=== PATIENT | male | born 1960 | race Caucasian/White ===

== ENCOUNTER 2017-03-11 15:38 | Day surgery (SDC) | payer BC ==
[2017-03-11] MEDS ORDERED: Levofloxacin 750 MG IVPREMIX(* 750 MG/150 ML BAG ONE (16:25)
[2017-03-11] MEDS ORDERED: Buffered Lidocaine 0.9% SYRIN* 5 ML/SYR SYRINGE INTRADERM ONE (16:28)
[2017-03-11] MEDS ORDERED: Ondansetron INJ* 2 MG/ML VIAL IV ONE (16:28)
[2017-03-11] MEDS ORDERED: Famotidine IV* 10 MG/ML 2 ML (20 mg) IV ONE (16:28)
[2017-03-11] MEDS ORDERED: Dexamethasone IV* 4 MG/ML 1 ML (4 MG) IV SLOW PU ONE (16:28)
[2017-03-11] MEDS ORDERED: Dexamethasone IV* 4 MG/ML 1 ML (4 MG) ONE (16:38)
[2017-03-11] MEDS ORDERED: Iohexol 180 (CONTRAST) 10 ML SDV IV ONE ×2 (16:38→18:08)
[2017-03-11] MEDS ORDERED: Ondansetron INJ* 2 MG/ML VIAL ONE (16:38)
[2017-03-11] MEDS ORDERED: Famotidine IV* 10 MG/ML 2 ML (20 mg) ONE (16:38)
[2017-03-11] MEDS ORDERED: Midazolam* 1 MG/ML 10 ML VIAL (10 MG) ONE (16:45)
[2017-03-11] MEDS ORDERED: Propofol* 10 MG/ML 20 ML BTL IV PUSH ONE (16:45)
[2017-03-11] MEDS ORDERED: fentaNYL* 50 MCG/ML 2 ML VIAL (100 MCG VIAL) ONE (16:45)
[2017-03-11] MEDS ORDERED: Chloroprocaine 2%* 20 ML VIAL ONE (16:48)
[2017-03-11] MEDS ORDERED: DiMENhydriNATE IV* 50 MG/ML VIAL IV PUSH PRN (17:40)
[2017-03-11] MEDS ORDERED: Scopolamine 1.5 mg* PATCH TRANSDERM PRN (17:40)
[2017-03-11] MEDS ORDERED: fentaNYL* 50 MCG/ML 2 ML VIAL (100 MCG VIAL) IV PRN (17:40)
[2017-03-11] MEDS ORDERED: HYDROmorphone INJ* 1 MG/ML CARPUJECT SYRINGE IV PRN (17:40)
[2017-03-11] MEDS ORDERED: oxyCODONE/Acetamin 5/325 MG* TAB PO PRN (17:40)
[2017-03-11] MEDS ORDERED: Ondansetron INJ* 2 MG/ML VIAL IV PRN (17:40)
--- NOTE | 2017-03-11 18:11 | RAD ---
INDICATION: Cystoscopy, stent insertion COMPARISONS: KUB dated March 11, 2017 TECHNIQUE: Fluoroscopy was provided for a retrograde pyelogram and stent placement. Total fluoroscopy time is: 13 seconds FINDINGS: Spot images demonstrate contrast within a stent within the renal collecting system IMPRESSION: FLUOROSCOPY WAS PROVIDED FOR A RETROGRADE PYELOGRAM AND STENT PLACEMENT CPT II Codes: 6045F
[2017-03-11 18:52] VITALS: BP 148/79
[2017-03-11] MEDS ORDERED: Acetaminophen TAB* 325 MG ONE (19:38)
--- NOTE | 2017-03-11 20:04 | RAD ---
HISTORY: Postop KUB COMPARISONS: March 11, 2017 at 1:22 PM VIEWS: Frontal views of the abdomen. FINDINGS: BOWEL: There is a nonspecific bowel gas pattern, with nondilated small bowel gas noted. CALCULI: Again noted is a right ureteral calculus. A right ureteral stent is noted. BONES AND SOFT TISSUES: There are no osseous abnormalities. OTHER FINDINGS: The lung bases are clear. There is no subphrenic gas. IMPRESSION: RIGHT NEPHROLITHIASIS WITH A RIGHT URETERAL STENT
--- NOTE | 2017-03-12 11:40 | OP ---
CC: Dr. Ambrosio Zelaya * DATE OF OPERATION: 03/11/17 - [facility] DATE OF : 64 SURGEON: Richard Bethea MD. ANESTHESIOLOGIST: Dr. Judah James. ANESTHESIA: Spinal. PRE-OP DIAGNOSES: 1. Right renal colic. 2. Calculus at the right ureteropelvic junction. POST-OP DIAGNOSES: 1. Right renal colic. 2. Calculus at the right ureteropelvic junction. OPERATIVE PROCEDURE: 1. Cystoscopy. 2. Right retrograde pyelography. 3. Placement of right ureteral stent (6-Mauritian) INDICATIONS FOR PROCEDURE: Mr. Hu is a 56-year-old white male who about a week ago started having recurrent episodes of right flank pain. The pain became very severe 3 days ago and he presented to the emergency room at [facility] where he had a renal ultrasound which showed a 1.5 cm calculus at the right ureteropelvic junction. The patient was managed conservatively with pain medication and tamsulosin. He presented today to Dr. Zelaya's office with recurrence of his colic. His serum creatinine was up to 1.9. He has remained afebrile. KUB showed a 1 cm radiopaque calculus at the area of right ureteropelvic junction. Because of the above history and findings and the recurrent episodes of pain and the size of the stone, the patient is taken to the operating room on an urgent basis for placement of a right ureteral stent. The patient has noted gross hematuria today. PATHOLOGY: At cystoscopy, the penile and bulbar urethrae looked normal. The prostatic urethra measured about 2.5 cm in length and there was some elevation of the bladder neck. Examination of the bladder showed normal mucosa. There were no suspicious bladder lesions seen. The ureteral orifices looked normal. At fluoroscopy a 1 cm radiopaque calculus was noted in the area of the right ureteropelvic junction. Right retrograde pyelography confirmed the above finding and showed moderate right hydronephrosis. DESCRIPTION OF PROCEDURE: After successful spinal anesthesia the patient was placed in the lithotomy position and was prepped and draped for a cystoscopy. Cystoscopy was performed. The bladder was carefully inspected and the above findings were noted. A flexible tip guidewire was then introduced into the right orifice and positioned in the area of the renal pelvis bypassing the stone. A size 5- Mauritian open-ended catheter was fed on top of the guidewire and positioned in the area of the renal pelvis. Bloody efflux was noted from the right renal pelvis. Retrograde pyelography was then performed demonstrating the above pathology. The guidewire was reintroduced. A size 6-Mauritian stent was then placed with the proximal end coiling in renal pelvis and the distal end coiling inside the bladder. There was good drainage of contrast from the kidney and no extravasation. The patient tolerated the procedure well and left the operating room in good condition. The plan is to obtain a KUB in the PACU. The plan will be to schedule him for shockwave lithotripsy of the right renal calculus followed by stent removal. [id number]/[facility] #: [id number] WILFRED
[2017-03-14] MEDS ORDERED: Scopolamine PATCH Remove* 1 NOTE MISC PATCH OFF ONE (17:41)
== END 2017-03-11 19:56 | disposition home or self-care (01) ==
LOC: OR 15:38
PROVIDERS: ATTEND Urology
DX: N20.0 Calculus of kidney (principal); R31.0 Gross hematuria; M19.90 Unspecified osteoarthritis, unspecified site; E66.9 Obesity, unspecified; R10.31 Right lower quadrant pain
CPT/HCPCS: 36415; 74000; 74420; 85610; 85730; A9270-GY; C1876; J1100; J2250; J2400; J2405; J2704; J3010

== ENCOUNTER → 2017-03-18 06:58 | Day surgery (SDC) | payer BC ==
--- NOTE | 2017-03-13 08:38 | HP ---
CC: Dr. Zelaya * HISTORY AND PHYSICAL: DATE OF PLANNED ADMISSION AND SURGERY: 03/18/17 HISTORY OF PRESENT ILLNESS: Mr. Hu is a 56-year-old white male who is admitted with a right renal calculus, status post placement of right ureteral stent for shockwave lithotripsy of right renal calculus followed by possible removal of the right ureteral stent. Mr. Hu was referred by Dr. Zelaya because of one week history of right renal colic. Workup showed 1-cm calculus at the right ureteropelvic junction associated with moderate hydronephrosis. Patient was taken to the operating room urgently on 03/11/17 and had a placement of right ureteral stent with resolution of his acute pain. Postoperative KUB showed the stone to be at the level of the ureteropelvic junction. Patient is now admitted for the above procedure for definitive treatment of the stone. PAST MEDICAL HISTORY AND SYSTEM REVIEW: He is in good health. He has glaucoma , on eye drops. He is on no other chronic medications. ALLERGIES: Patient reports being severely allergic with anaphylaxis to PENICILLIN and to CEPHALOSPORINS. He denies any cardiac or pulmonary diseases or symptoms. PHYSICAL EXAMINATION GENERAL: Moderately overweight, otherwise healthy looking white male who looks his age. VITAL SIGNS: Blood pressure 130/80, pulse of 60. LUNGS: Clear. HEART: Regular and rhythmic, no murmurs. ABDOMEN: Soft. No masses, no tenderness and slight right CVA tenderness. IMPRESSION: A 1-cm calculus at the right ureteropelvic junction, status post placement of right ureteral stent. PLAN: For shockwave lithotripsy of the right renal calculus with possible cystoscopy and removal of the right ureteral stent. I discussed the above in detail with the patient. All his questions were answered. [id number]/[facility] #: [id number] WILFRED
[~2017-03-18 06:58] MED LIST: Buffered Lidocaine 0.9% SYRIN* 5 ML/SYR SYRINGE INTRADERM ONE; Buffered Lidocaine 0.9% SYRIN* 5 ML/SYR SYRINGE ONE; Chloroprocaine 2%* 20 ML VIAL ONE; DiMENhydriNATE IV* 50 MG/ML VIAL IV PUSH PRN; Famotidine IV* 10 MG/ML 2 ML (20 mg) IV ONE; Famotidine IV* 10 MG/ML 2 ML (20 mg) ONE; KETAMINE HCL* 50 MG/ML 10 ML VIAL ONE; Levofloxacin 750 MG IVPREMIX(* 750 MG/150 ML BAG ONE; Midazolam* 1 MG/ML 10 ML VIAL (10 MG) ONE; Morphine INJ* 2 MG/ML 1 ML CARPUJECT IV PRN; PROCHLORPERAZINE INJ 5 MG/ML 2 ML VIAL IV PRN; Scopolamine 1.5 mg* PATCH TRANSDERM PRN; Scopolamine PATCH Remove* 1 NOTE MISC PATCH OFF ONE; fentaNYL* 50 MCG/ML 2 ML VIAL (100 MCG VIAL) IV PRN; fentaNYL* 50 MCG/ML 2 ML VIAL (100 MCG VIAL) ONE; oxyCODONE/Acetamin 5/325 MG* TAB PO PRN
[2017-03-18 11:20] VITALS: BP 122/62
--- NOTE | 2017-03-19 02:45 | OP ---
CC: Dr. Zelaya * DATE OF OPERATION: 03/18/17 - [facility] DATE OF : 64 SURGEON: Richard Bethea MD ANESTHESIOLOGIST: Dr. Farooq Lucero. ANESTHESIA: Spinal. PRE-OP DIAGNOSES: 1. Right renal calculus. 2. Status post placement right ureteral stent. POST-OP DIAGNOSES: 1. Right renal calculus. 2. Status post placement right ureteral stent. OPERATIVE PROCEDURE: Shockwave lithotripsy of right renal calculus. INDICATION FOR PROCEDURE: Mr. Hu is a 56-year-old white male who underwent urgent placement of right ureteral stent 1 week ago because of a 1.2 -cm calculus located at the right ureteropelvic junction. He did well postoperatively with resolution of his pain. He is now been brought in for definitive treatment of the stone. Pathology: at fluoroscopy, the calculus seemed to have migrated just distal to the level of the right ureteropelvic junction. The right ureteral stent was in good position. No other abnormal calcifications were noted. DESCRIPTION OF PROCEDURE: After successful spinal anesthesia, the patient was placed in the supine position on the shockwave lithotripsy table. The right renal calculus was visualized in both the PA and the oblique x-ray views and the position of the generator and of the patient were adjusted to have the stone in the focus of the shockwaves. A total of 2,400 shocks were then delivered at a rate of 90 shocks per minute. The proper positioning and fragmentation of the stone were monitored periodically. A 3 minutes break was taken after the initial 300 shocks to reduce the risk of renal injury. Although the fragmentation of the stone seemed to be adequate, it was decided not to remove the stent because of the concern about associated edema of the ureteral mucosa surrounding the stone. The patient tolerated the procedure well and left the operating room in good condition. The plan is to see the patient next week in the office with a KUB. The stent will be removed in the office under local anesthesia. [id number]/[facility] #: [id number] [facility] HEALTHAvinash
== END | disposition home or self-care (01) ==
LOC: OR 06:58
PROVIDERS: ATTEND Urology
DX: N20.0 Calculus of kidney (principal); Z96.0 Presence of urogenital implants; H40.9 Unspecified glaucoma; Z88.0 Allergy status to penicillin; Z88.1 Allergy status to other antibiotic agents
CPT/HCPCS: J2250; J2400; J3010

== ENCOUNTER → 2017-03-29 08:10 | Day surgery (SDC) | payer BC ==
--- NOTE | 2017-03-28 21:19 | HP ---
INTERVAL HISTORY NOTE: DATE OF PLANNED ADMISSION AND SURGERY: 03/29/17 HISTORY OF PRESENT ILLNESS: Mr. Hu is a 56-year-old white male who is admitted with a proximal right ureteral calculus, status post placement right ureteral stent for cystoscopy, right ureteroscopy, laser lithotripsy, and right ureteral stent exchange. Please refer to my history and physical for his admission dated 03/18/17. In brief, Mr. Hu presented with right renal colic secondary to 1.2 cm proximal right ureteral calculus. He had urgent placement of right ureteral stent on 03/11/17. He was brought back on 03/18/17 and underwent shockwave lithotripsy of the right renal calculus. The calculus did not seem to have fragmented at the end of the procedure, the stent was not removed. He was evaluated in the office with a followup KUB and the calculus seemed to be not fragmented and still located in the proximal left ureter just distal to the ureteropelvic junction. I gave the patient the options of removing the stent and allowing the stone to drop into the ureter and if it gets obstructed, he can undergo a ureteroscopy and laser lithotripsy. 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 The plan therefore is for a right ureteroscopy, laser lithotripsy, and right ureteral stent exchange. I discussed the above plan with the patient. Some of the potential complications including migration of the stone, inability to extract all the stone fragments were discussed. [id number]/[facility] #: [id number] WILFRED
[~2017-03-29 08:10] MED LIST changes: +Dexamethasone IV* 4 MG/ML 1 ML (4 MG) ONE; +EPHEDrine (Pressors)* 50 MG/ML VIAL ONE; +Iohexol 180 (CONTRAST) 10 ML SDV IV ONE; +Lidocaine 2% PF * 5 ML VIAL ONE; +Ondansetron INJ* 2 MG/ML VIAL ONE; +Phenylephrine INJ* 10 MG/ML 1 ML VIAL (10 MG) ONE; +Propofol* 10 MG/ML 20 ML BTL IV PUSH ONE; +Scopolamine 1.5 mg* PATCH ONE
--- NOTE | 2017-03-29 11:50 | RAD ---
INDICATION: Right ureteral stent exchange COMPARISON: None FINDINGS: 15 seconds of fluoroscopy were provided for the urology department. Fluoroscopic spot imaging of the right abdomen were obtained for operative control. CPT II Codes: 6045F (fluoro time doc)
[2017-03-29 13:20] VITALS: BP 122/85
--- NOTE | 2017-03-30 00:24 | OP ---
CC: Dr. Zelaya OPERATIVE REPORT: DATE OF OPERATION: 03/29/17 DATE OF : 64 SURGEON: Richard Bethea MD ANESTHESIOLOGIST: Farooq Lucero MD ANESTHESIA: Spinal. PRE-OP DIAGNOSES: 1. Proximal right ureteral calculus. 2. Status post placement of right ureteral stent. 3. Status post shock wave lithotripsy of proximal right ureteral calculus. POST-OP DIAGNOSES: 1. Proximal right ureteral calculus. 2. Status post placement of right ureteral stent. 3. Status post shock wave lithotripsy of proximal right ureteral calculus. OPERATIVE PROCEDURE: 1. Cystoscopy. 2. Right ureteroscopy and pyeloscopy and laser lithotripsy of right proximal ureteral calculus (1.2 cm). 3. Right retrograde pyelography and right ureteral stent exchange (7-Canadian). INDICATIONS: Mr. Hu is a 56-year-old white male who had urgent placement of a right ureteral stent on 03/11/17 because of an obstructing 1.2-cm calculus at the right ureteropelvic junction. He then underwent shock wave lithotripsy of the right renal calculus on 03/18/17. Postoperative KUB showed the stone not to be fragmented and still at the level of the ureteropelvic junction. Because of that finding, the patient is brought in for definitive treatment of the stone. PATHOLOGY AT CYSTOSCOPY: The penile and bulbar urethrae looked normal. The prostatic urethra measured about 2.5 cm in length, but there was elevation of the bladder neck with some bladder outlet obstruction. Examination of the bladder showed the distal limb of the stent coming from the right ureteral orifice. At fluoroscopy, the stent was in good position and there was a 1.2-cm radiopaque calculus at the ureteropelvic junction. Upon right ureteroscopy, the calculus was noted at the level of the ureteropelvic junction. The stone was impacted. There was edema to the adjacent ureteral mucosa. The stone had the gross appearance of calcium oxalate stone. DESCRIPTION OF PROCEDURE: After successful spinal anesthesia, the patient was placed in the lithotomy position and was prepped and draped for cystoscopy. Cystoscopy was performed, the bladder was inspected and the above findings were noted. The distal limb of the stent was pulled out to the level of the urethral meatus. A flexible-tip guidewire was then introduced into the lumen of the stent and positioned in the area of the renal pelvis and the stent was removed keeping the guidewire in place. A size 6.5 semi-rigid ureteroscope was then introduced inside the bladder. A flexible-tip spiral basket was introduced through the port of the ureteroscope and its flexible tip was passed inside the right ureter adjacent to the guidewire. This allowed the atraumatic introduction of the ureteroscope all the way up into the proximal ureter. The ureter was dilated because of the stent and the scope went easily without any difficulty. The calculus was identified at the level of the ureteropelvic junction. There was edema of the adjacent mucosa. The basket was then pushed beyond the stone and the basket was deployed to avoid proximal migration of the stone into the renal pelvis. A size 550 micron laser fiber was then introduced through the other port of the ureteroscope and the stone was broken into multiple fragments making sure not to to cause any injury to the ureteral wall. The stone was broken into 4 fragments. The fragments were then extracted one by one with the basket. The ureteroscope was then reintroduced all the way into the renal pelvis and no stone fragments were noted. The ureter was intact without any evidence of any injury or perforation. The Ureteroscope was removed keeping the guidewire in place. Retrograde pyelography was then performed, no extravasation was noted. A size 7-Canadian stent was then placed with the proximal end coiling in the renal pelvis and distal end coiling inside the bladder. There was good drainage of contrast from the kidney and no extravasation. A 16-Canadian Guajardo catheter was then passed inside the bladder. The patient tolerated the procedure well and left the operating room in good condition. The plan is to remove the stent in the office next week. [id number]/[facility] #: [id number] [facility] HOSPITALAvinash
== END | disposition home or self-care (01) ==
LOC: OR 08:10
PROVIDERS: ATTEND Urology
DX: N20.0 Calculus of kidney (principal); N32.0 Bladder-neck obstruction
CPT/HCPCS: 62323; 74420; 82365; 88300; A9270-GY; C1876; J1100; J2250; J2400; J2405; J2704; J3010

== ENCOUNTER 2023-01-01 11:29 | Inpatient (IN) ==
[~2023-01-01 11:29] MED LIST changes: -Buffered Lidocaine 0.9% SYRIN* 5 ML/SYR SYRINGE INTRADERM ONE; -Buffered Lidocaine 0.9% SYRIN* 5 ML/SYR SYRINGE ONE; +Buffered Lidocaine 1% SYRIN 1 ml INTRADERM ONE; -Chloroprocaine 2%* 20 ML VIAL ONE; -Dexamethasone IV* 4 MG/ML 1 ML (4 MG) ONE; -DiMENhydriNATE IV* 50 MG/ML VIAL IV PUSH PRN; -EPHEDrine (Pressors)* 50 MG/ML VIAL ONE; +Famotidine IV 10 MG/ML 2 ml VIAL (20 mg) IV ONE; -Famotidine IV* 10 MG/ML 2 ML (20 mg) IV ONE; -Famotidine IV* 10 MG/ML 2 ML (20 mg) ONE; -Iohexol 180 (CONTRAST) 10 ML SDV IV ONE; -KETAMINE HCL* 50 MG/ML 10 ML VIAL ONE; +Lactated Ringers 1000 ml BAG 1,000 ML IV SCH; -Levofloxacin 750 MG IVPREMIX(* 750 MG/150 ML BAG ONE; -Lidocaine 2% PF * 5 ML VIAL ONE; -Midazolam* 1 MG/ML 10 ML VIAL (10 MG) ONE; -Morphine INJ* 2 MG/ML 1 ML CARPUJECT IV PRN; -Ondansetron INJ* 2 MG/ML VIAL ONE; -PROCHLORPERAZINE INJ 5 MG/ML 2 ML VIAL IV PRN; -Phenylephrine INJ* 10 MG/ML 1 ML VIAL (10 MG) ONE; -Propofol* 10 MG/ML 20 ML BTL IV PUSH ONE; -Scopolamine 1.5 mg* PATCH ONE; -Scopolamine 1.5 mg* PATCH TRANSDERM PRN; -Scopolamine PATCH Remove* 1 NOTE MISC PATCH OFF ONE; -fentaNYL* 50 MCG/ML 2 ML VIAL (100 MCG VIAL) IV PRN; -fentaNYL* 50 MCG/ML 2 ML VIAL (100 MCG VIAL) ONE; -oxyCODONE/Acetamin 5/325 MG* TAB PO PRN
[2023-01-01] MEDS ORDERED: Tranexamic Acid 1 GM/100ML BAG 2,000 MG/200 ML BAG IV ONE (11:48)
[2023-01-01] MEDS ORDERED: Clindamycin 900 MG/50 **NS BAG 900 MG/50 ML BAG ONE (11:48)
[2023-01-01] MEDS ORDERED: Famotidine IV 10 MG/ML 2 ml VIAL (20 mg) ONE (11:49)
[2023-01-01 12:20] LABS: Rapid COVID-19 Molecular Undetected (Undetected)
[2023-01-01] MEDS ORDERED: Propofol 10 MG/ML 20 ML BTL ONE ×3 (12:21→17:20)
[2023-01-01] MEDS ORDERED: Lidocaine 2% PF 5 ML VIAL ONE (12:21)
[2023-01-01] MEDS ORDERED: fentaNYL 100 mcg/2 ml 50 MCG/ML VIAL ONE (13:56)
[2023-01-01] MEDS ORDERED: Midazolam 2 mg/2 ml VIAL 1 mg/ml 2 ml VIAL (2 mg) ONE ×2 (13:56→14:48)
[2023-01-01] MEDS ORDERED: ROPIVACAINE 5 MG/ML 30 ML BTL (0.5%) ONE (13:57)
[2023-01-01] MEDS ORDERED: Ondansetron 4 mg VIAL 2 MG/ML 2 ml VIAL ONE (14:11)
[2023-01-01] MEDS ORDERED: Dexamethasone IV 4 MG/ML VIAL 1 ml VIAL ONE (14:12)
[2023-01-01] MEDS ORDERED: Naloxone 0.4 mg VIAL 0.4 mg/ml 1 ml VIAL IV PRN (14:50)
[2023-01-01] MEDS ORDERED: Ondansetron 4 mg VIAL 2 MG/ML 2 ml VIAL IV PRN ×2 (14:50→15:55)
[2023-01-01] MEDS ORDERED: fentaNYL 100 mcg/2 ml 50 MCG/ML VIAL IV PRN (14:50)
[2023-01-01] MEDS ORDERED: KETAMINE HCL 10 MG/ML 20 ml VIAL (200 MG) ONE (15:14)
[2023-01-01] MEDS ORDERED: Morphine 2 MG/ML SYRINGE IV PRN (15:55)
[2023-01-01] MEDS ORDERED: Ondansetron ODT 4 mg TAB 4 MG TAB PO PRN (15:55)
[2023-01-01] MEDS ORDERED: Magnesium Hydroxide LIQ 30 ML UDC PO PRN (15:55)
[2023-01-01] MEDS ORDERED: Lactulose 30 ml UDC PO PRN (15:55)
[2023-01-01] MEDS ORDERED: Lactated Ringers 1000 ml BAG 1,000 ML IV SCH (16:00)
[2023-01-01] MEDS ORDERED: Acetaminophen IV 1 GM/100ML 1,000 MG/100 ML BAG IV ONE (17:04)
[2023-01-01] MEDS: Magnesium Hydroxide LIQ 30 ML UDC PO SCH (22:19)
[2023-01-01] MEDS: Clindamycin 600 MG/NS BAG(*) 600 MG/50 ML BAG IV SCH (22:50)
[2023-01-02] MEDS: Clindamycin 600 MG/NS BAG(*) 600 MG/50 ML BAG IV SCH ×2 (05:48→14:22)
[2023-01-02 07:04] LABS: Hematocrit 41.4 % (38-53); Hemoglobin 14.5 g/dL (13.2-16.3); Mean Platelet Volume 10.2 fL (7.5-11.2); Platelet Count 173 10^3/uL (150-450)
[2023-01-02 07:08] LABS: Calcium 8.9 mg/dL (8.6-10.3); Creatinine, Serum 0.98 mg/dL (0.67-1.17); Potassium 4.6 mmol/L (3.5-5.0); eGFR CKD-EPI 88.3 (>60)
[2023-01-02] MEDS ORDERED: Vitamin THERAPEUTIC TAB PO SCH (09:00)
[2023-01-02] MEDS: Magnesium Hydroxide LIQ 30 ML UDC PO SCH (09:28)
[2023-01-02 14:15] VITALS: BP 122/65
== END 2023-01-02 15:20 | disposition home or self-care (01) | DRG 302 ==
LOC: AA 11:29 → INTOOBSV 11:29 → SSU 19:56
PROVIDERS: ADMIT Orthopaedic Surgery Adult Reconstructive Orthopaedic Surgery; ATTEND Orthopaedic Surgery Adult Reconstructive Orthopaedic Surgery